=== PATIENT | male | born 1950 | race Caucasian/White ===

== ENCOUNTER 2020-10-27 06:15 | Day surgery (SDC) | payer MEDICARE, MEDICAID ==
[2020-10-20 14:58] LABS: BASOPHILS # (AUTO) 0.1 X10'3 (0-0.2); BASOPHILS % (AUTO) 0.9 % (0-1); EOSINOPHILS # (AUTO) 0.3 X10'3 (0-0.9); EOSINOPHILS % (AUTO) 2.5 % (0-6); LYMPHOCYTES # (AUTO) 3.2 X10'3 (1.1-4.8); MEAN CORPUSCULAR HEMOGLOBIN 29.5 PG (27.0-31.0); MEAN CORPUSCULAR HGB CONC 34.7 g/dL (33.0-36.5); MEAN PLATELET VOLUME 6.6 FL (7.4-10.4); MONOCYTES # (AUTO) 1.1 X10'3 (0-0.9); MONOCYTES % (AUTO) 10.4 % (2-12); NEUTROPHILS % (AUTO) 56.2 % (42-75); PRE OP HEMATOCRIT 41.5 % (42.0-52.0); PRE OP HEMOGLOBIN 14.4 g/dL (14.0-17.9); PRE OP PLATELET COUNT 327 X10'3 (140-440); RED BLOOD COUNT 4.88 X10'6 (4.70-6.10); RED CELL DISTRIBUTION WIDTH 13.5 % (11.5-14.5)
[2020-10-20 15:11] LABS: ALBUMIN 4.3 G/DL (3.4-5.0); ALBUMIN/GLOBULIN RATIO 1.2 (1.1-1.5); ALKALINE PHOSPHATASE 111 IU/L (46-116); BLOOD UREA NITROGEN 18 MG/DL (7-18); BUN/CREATININE RATIO 19.8 (5.4-32.0); CALCIUM 9.4 MG/DL (8.5-10.1); CHLORIDE 101 MMOL/L (99-107); CREATININE 0.91 MG/DL (0.60-1.10); PRE OP ALT 40 U/L (30-65); PRE OP ANION GAP 10 (8-16); PRE OP AST 21 U/L (10-37); PRE OP BILIRUB, TOTAL 0.4 MG/DL (0.0-1.0); PRE OP GLUCOSE 156 MG/DL (70-104); PRE OP POTASSIUM 4.2 MMOL/L (3.4-5.1); PRE OP PROTIME 10.5 SECONDS (9.0-12.0); PRE OP SODIUM 137 MMOL/L (135-145); TOTAL CARBON DIOXIDE 26.3 MMOL/L (24-32); eGFR 82 ML/MIN
[2020-10-27] VITALS (7 sets, daily range): BP systolic 133–142; BP diastolic 64–71
[~2020-10-27] VITALS: Ht 167.6 cm; Wt 75.0 kg
[~2020-10-27 06:15] MED LIST: METF-438 PO; famotidine 20mg tablet PO ONE; oxymetazoline 15 ML nasal spray NS PRN; ringers solution, lacted 1,000 ML IV SCH
[2020-10-27] MEDS ORDERED: cocaine 4% topical solution 4ml bottle ONE (07:10)
[2020-10-27] MEDS ORDERED: mupirocin 2% ointment 22GM ONE (07:11)
[2020-10-27] MEDS ORDERED: LIDOcaine 1% W/epiNEPHrine 1:100,000 20ml vial ONE (07:11)
[2020-10-27] MEDS ORDERED: oxymetazoline 15 ML nasal spray NS ONE (07:11)
[2020-10-27] MEDS ORDERED: cefTAZidime 1gm inj ONE (07:11)
[2020-10-27] MEDS ORDERED: methylPREDNISolone acetate 80mg/ml inj**IM only ONE (07:11)
[2020-10-27] MEDS ORDERED: hydrALAZINE 20mg/ml inj. IV PRN (08:00)
[2020-10-27] MEDS ORDERED: ringers solution, lacted 1,000 ML IV SCH (08:00)
[2020-10-27] MEDS ORDERED: morphine 2 MG/ML inj. syringe IV PRN (08:00)
[2020-10-27] MEDS ORDERED: morphine 4 MG/ML inj SYRINge IV PRN (08:00)
[2020-10-27] MEDS ORDERED: fentaNYL/PF 50MCG/1 ML 2ML syringe IV PRN ×2 (08:00)
[2020-10-27] MEDS ORDERED: labetalol 20mg/4ml (5mg/ml) syringe IV PRN (08:00)
[2020-10-27] MEDS ORDERED: ondansetron/PF 4mg/2ml inj IV PRN (08:00)
[2020-10-27] MEDS ORDERED: midazolam 2 mg/2 ml injection ONE (08:07)
[2020-10-27] MEDS ORDERED: fentaNYL/PF 50MCG/1 ML 2ML syringe ONE (08:07)
[2020-10-27] MEDS ORDERED: propofol inj 20 ML IV ONE (08:07)
[2020-10-27] MEDS ORDERED: LIDOcaine 2% (20mg/ml) 5ml vial ONE (08:07)
[2020-10-27] MEDS ORDERED: ondansetron/PF 4mg/2ml inj ONE (08:32)
[2020-10-27] MEDS ORDERED: metoclopramide 5 mg/ml inj ONE (08:32)
[2020-10-27] MEDS ORDERED: LIDOcaine 1% W/epiNEPHrine 1:200,000 10ml vial ONE (08:51)
--- NOTE | 2020-10-27 09:35 | NUR ---
Received from OR via , accompanied by Anesthesiologist DR BARRY and report given by Anesthesiolgist. AWAKENS TO VOICE. VITALS STABLE. NO BLEEDING NOTED. PAM PAIN.
[2020-10-27] MEDS ORDERED: salt irrigation nasal spray 45 ML SPRAY NS PRN (10:30)
--- NOTE | 2020-10-27 10:45 | NUR ---
AWAKE AND ORIENTED. VITALS STABLE. DRESSING DI. PAM PAIN. HOME WITH HIS AT THIS TIME.
== END 2020-10-27 10:45 | disposition home or self-care (01) ==
LOC: PAS 06:15
PROVIDERS: ATTEND Otolaryngology
DX: J34.2 Deviated nasal septum (principal); J34.3 Hypertrophy of nasal turbinates; J32.8 Other chronic sinusitis; E11.9 Type 2 diabetes mellitus without complications; Z87.891 Personal history of nicotine dependence; Z20.822 Contact with and (suspected) exposure to COVID-19; Z98.890 Other specified postprocedural states
CPT/HCPCS: 30140; 30520; 31240; 36415; 80053; 82948; 85025; 85576; 85610; 85730; 87426; 87635; 93005; A6402; C9250; J0713; J1040; J2001; J2250; J2405; J2704; J2765; J3010; J7040; J7120; 88300; 88304; A4618; A7000

== ENCOUNTER 2022-06-03 08:51 | Emergency (ER) | payer MEDICARE, MEDICAID ==
[~2022-06-03] VITALS: Ht 165.1 cm; Wt 63.6 kg
[~2022-06-03 08:51] MED LIST changes: -famotidine 20mg tablet PO ONE; -oxymetazoline 15 ML nasal spray NS PRN; -ringers solution, lacted 1,000 ML IV SCH
[2022-06-03] MEDS ORDERED: HYDROcodone/acetaminophen 10/325mg tab PO ONE (11:30)
[2022-06-03] MEDS ORDERED: iohexol 350MG/ML 100ml bottle IV ONE (12:11)
[2022-06-03 12:32] LABS: BASOPHILS % (AUTO) 0 % (0-1); EOSINOPHILS % (AUTO) 0 % (0-6); HEMATOCRIT 38.5 % (42.0-52.0); HEMOGLOBIN 13.3 g/dl (14.0-17.9); LYMPHOCYTES # (AUTO) 0.8 X10'3 (1.1-4.8); LYMPHOCYTES % (AUTO) 4.6 % (21-51); MEAN CORPUSCULAR HEMOGLOBIN 28.4 PG (27.0-31.0); MEAN CORPUSCULAR HGB CONC 34.5 g/dL (33.0-36.5); MEAN CORPUSCULAR VOLUME 82.4 FL (78-98); MEAN PLATELET VOLUME 6.6 FL (7.4-10.4); MONOCYTES # (AUTO) 2.1 X10'3 (0-0.9); MONOCYTES % (AUTO) 11.9 % (2-12); NEUTROPHILS # (AUTO) 14.9 X10'3 (1.8-7.7); NEUTROPHILS % (AUTO) 83.5 % (42-75); PLATELET COUNT 252 X10'3 (140-440); RED BLOOD COUNT 4.67 X10'6 (4.70-6.10); RED CELL DISTRIBUTION WIDTH 14.8 % (11.5-14.5); WHITE BLOOD COUNT 17.9 X10'3 (4.5-11.0)
[2022-06-03 12:48] LABS: TOTAL CELLS COUNTED 100
[2022-06-03 12:49] LABS: PLATELET ESTIMATE NORMAL
[2022-06-03 12:50] LABS: MICROCYTOSIS 1+
[2022-06-03 13:22] LABS: ALANINE AMINOTRANSFERASE 46 U/L (12-78); ALBUMIN 3.2 G/DL (3.4-5.0); ALBUMIN/GLOBULIN RATIO 0.8 (1.1-1.5); ALKALINE PHOSPHATASE 101 IU/L (46-116); ANION GAP 11 (8-16); ASPARTATE AMINO TRANSFERASE 34 U/L (10-37); BILIRUBIN,TOTAL 0.8 MG/DL (0.1-1.0); BLOOD UREA NITROGEN 14 MG/DL (7-18); BUN/CREATININE RATIO 18.7 (5.4-32.0); CALCIUM 8.9 MG/DL (8.5-10.1); CHLORIDE 96 MMOL/L (99-107); CREATININE 0.75 MG/DL (0.60-1.10); GLUCOSE 248 MG/DL (70-104); POTASSIUM 3.8 MMOL/L (3.5-5.1); SODIUM 128 MMOL/L (135-145); TOTAL CARBON DIOXIDE 20.9 MMOL/L (24-32); eGFR > 90 ML/MIN
[2022-06-03] MEDS ORDERED: MESSAGE TO NURSING PO NR (13:36)
[2022-06-03] MEDS ORDERED: ampicillin/sulbac 3gm/NS 100ml 100 ML IV SCH ×2 (15:10→20:00)
[2022-06-03] MEDS ORDERED: normal saline 1000ML IV soln IVB ONE (15:15)
[2022-06-03] MEDS ORDERED: ampicillin/sulbac 3gm/NS 100ml 100 ML IV ONE (15:16)
[2022-06-03] MEDS ORDERED: ondansetron 4mg rapidly disintigrating tab PO ONE (17:15)
--- NOTE | 2022-06-03 17:39 | NUR ---
REPORT CALLED TO MANJU SALEH FOR ENT TRANSFER.
[2022-06-03 18:08] VITALS: BP 138/59
== END 2022-06-03 18:10 | disposition short-term general hospital (02) ==
LOC: ER 08:51
DX: L02.01 Cutaneous abscess of face (principal); Z20.822 Contact with and (suspected) exposure to COVID-19; M86.9 Osteomyelitis, unspecified; K04.7 Periapical abscess without sinus; Z79.899 Other long term (current) drug therapy
CPT/HCPCS: 36415; 70491; 80053; 83605; 84145; 85007; 85025; 87040; 87635; 96365; 99285; C9803; J0295; J3490; J7030; Q9967